=== PATIENT | female | born 1940 | race Caucasian/White ===

== ENCOUNTER 2016-09-21 06:42 | Inpatient (IN) ==
[~2016-09-21 06:42] MED LIST: ACETAMINOPHEN 500 MG TABLET PO ONE; CEFAZOLIN 1 G INJECTION IVP ONE; EPINEPHrine 0.25 MG, BUPIVACAINE 0.25% PF 30 ML, MORPHINE SULFATE 15 MG, KETOROLAC INJ ... OPSITE ONE; FAMOTIDINE PB 20 MG/50 ML BAG IV ONE; LIDOCAINE 1% (10mg/ml) 10mL MDV SQ ONE; MELOXICAM 15 MG TABLET PO ONE; METOCLOPRAMIDE 10mg/2ml INJECTION IVP ONE; NOZIN NASAL SWAB NAS ONE; ONDANSETRON 4 MG/2 ML INJECTION IVP ONE; SALINE FLUSH 10ml SYRINGE IVF PRN; TRANEXAMIC ACID 1,000 MG in NS 100 ML IV ONE
[2016-09-21 06:58] VITALS: BMI 28.6
[2016-09-21] MEDS ORDERED: VANCOMYCIN 1,000 MG INJECTION ONE (07:00)
[2016-09-21] MEDS ORDERED: LIDOCAINE 1% (10mg/ml) 2mL INJ PF SDV ID ONE (07:45)
--- NOTE | 2016-09-21 08:53 | History & Physical Update ---
- History and Physical Update Date: 09/21/16 Update: I evaluated this patient and found no changes in the history and clinical exam findings. The treatment plan and recommendations are also unchanged from the previous documentation.
[2016-09-21] MEDS ORDERED: PROPOFOL 500 MG/50 ML VIAL IV ONE (08:56)
[2016-09-21] MEDS ORDERED: HYDROMORPHONE 2 MG/ML INJECTION IVP PRN (09:43)
--- NOTE | 2016-09-21 09:43 | Anesthesia Preoperative Report ---
Anesthesia Preoperative Record - Date and Time Date: 09/21/16 Preoperative Diagnosis: Lt TKA M17.12 Proposed Procedure: left total knee arthroplasty NPO Since Date: 09/21/16 NPO Since Time: 05:00 Allergies/Adverse Reactions: Allergies Allergy/AdvReac Type Severity Reaction Status Date / Time No Known Drug Allergies Allergy Unknown Verified 09/21/16 07:06 - Vital Signs Vital Signs: Temperature 97.6 F 09/21/16 06:57 Pulse Rate 92 09/21/16 06:57 Respiratory Rate 15 09/21/16 06:57 Blood Pressure 147/73 H 09/21/16 06:57 Pulse Oximetry 96 09/21/16 06:57 Oxygen Delivery Method Room Air Height and Weight: Height 1.63 m Weight 75.8 kg Body Mass Index 28.6 - Medications Inpatient Medications: Current Medications Epinephrine HCl 0.25 mg/Bupivacaine HCl 30 ml/Morphine Sulfate 15 mg/Ketorolac Tromethamine 60 mg/Sodium Chloride 65.25 mls @ 1 mls/hr OPSITE INTRAOP ONE PRN Reason: Protocol Stop: 09/23/16 23:14 Lactated Ringer's (Lactated Ringers) 1,000 mls @ 50 mls/hr IV .Q20H DEDRICK Last Admin: 09/21/16 07:29 Dose: 50 mls/hr Sodium Chloride (Iv Flush) 10 - 80 ml IVF PRN PRN PRN Reason: [place] Home Medications: Home Medications Medication Instructions Recorded Confirmed Type Acetaminophen [Tylenol Arthritis] 2 tab PO PRN PRN #0 07/08/09 09/20/16 History Guanfacine HCl [Tenex] 1 mg PO DAILY #0 07/08/09 09/21/16 History Lisinopril 20 mg PO DAILY #0 tab 07/22/13 09/21/16 History Aspirin [ASA] 325 mg PO PRN PRN 09/12/16 09/20/16 History Meloxicam 7.5 mg PO BID 09/12/16 09/21/16 History Metformin HCl [Glucophage Xr] 1 tab PO DAILY 09/12/16 09/21/16 History MethIMAzole [Tapazole] 1 tab PO DAILY 09/12/16 09/21/16 History Multivitamin [Multivitamins] 1 cap PO DAILY 09/12/16 09/21/16 History [place]-3/Dha/Epa/Fish Oil [Fish Oil 1 each PO DAILY 09/12/16 09/20/16 History 500 mg Softgel] - Medical History Cardiovascular: Reports: Heart Murmur, Hypertension Renal/Endocrine: Reports: Diabetes Mellitus Type 2 - Surgical History HEENT Surgeries: Reports: Eye Surgery (ANDRE CATARACTS) Endocrine Surgery/Treatments: Reports: Other ("PREDIABETIC"; HYPERGLYCEMIA--on Metformin) GI Surgery/Treatments: Reports: Appendectomy, Colonoscopy (X3), Other ( HEMORRHOIDECTOMY X2) Musculoskeletal Surgery/Tx: Reports: Total Knee Replacement (RIGHT) Reproductive Surgery/Treatment: Reports: Hysterectomy, Oophorectomy (left), Tubal Ligation, Salpingectomy Anesthesia Reactions: None Hx Family Anesthesia Reaction: No History of Motion Sickness: No - Social History Smoking Status: Never smoker Hx Chewing Tobacco Use: No Second Hand Exposure: No Substance Use Type: does not use Alcohol Intake Frequency: does not drink - Pertinent Findings Laboratory: CBC and BMP 09/21/16 07:56 BMP 09/21/16 07:56 Sodium 143 Potassium 4.1 Chloride 110 H Carbon Dioxide 23 BUN 17.0 Creatinine 0.7 Glucose 130 H Calcium 8.9 EKG Rhythm: Normal Sinus Rhythm - Physical Exam Respiratory Exam: Present: lungs clear Cardiovascular Exam: Present: regular rate and rhythm, systolic murmur - Airway Assessment Mallampati Score: II TMD: 3 Fingerbreadths Neck Extension: good Teeth: chipped teeth/crowns Overall Assessment: no airway concerns - ASA ASA Score: 2 - Plan Regional/Trunk Block: Spinal Peripheral Nerve Block: Saphenous-Left - Discussion Discussion: Discussed risks/options/alternatives of anesthesia and questions answered. Patient consents. Nursing pain assessment noted. Attestation Statement: Prior to the delivery of any anesthetic medication, I examined the patient, developed the plan, obtained the patient's consent and discussed the risk and benefits of the procedure with the patient/guardian. - Additional Information Seen by Anesthesia: Yes
[2016-09-21] MEDS ORDERED: PROPOFOL 20 ML ONE (09:53)
[2016-09-21] MEDS ORDERED: VANCOMYCIN 1,000 MG INJECTION IAR ONE (09:58)
--- NOTE | 2016-09-21 10:10 | Operative Note ---
- Procedure Date of Admission: 09/21/16 Side: left Preoperative Diagnosis: knee primary DJD Postoperative Diagnosis: Same as preoperative diagnosis. Operation: total knee arthroplasty Surgeon: Carmen Nettles MD Solution Sales Senior Executive: Archie Alaniz Complications: None. Regional/Trunk Block: Spinal Estimated Blood Loss: See Anesthesia Record. Fluids: Please see Anesthesia Record. Description of Procedure: Mrs. Tijerina and left knee knee were identified and marked in the preoperative holding area. She was brought back to the operating suite and placed supine on the operating table. Spinal anesthetic was administered. The operative lower extremity was prepped and draped in a sterile fashion. Timeout was performed. She had a varus deformity which was fixed with no flexion contracture. An anterior midline incision followed by medial parapatellar arthrotomy was performed. The tourniquet was not used until cementing. Hemostasis was obtained with electrocautery. The patella was resurfaced to a size 29. A distal femoral osteotomy was then performed in 5 of valgus using intramedullary guide. The femur was sized at a 3 and rotation set using the epicondylar axis. Distal femoral cuts were performed with a 4-in-1 cutting block. A proximal tibial cut was then made perpendicular to its long axis using an extramedullary guide. At this point remaining meniscus and osteophytes were removed and joint cocktail was injected throughout soft tissue. Trial components were placed with a 9 mm spacer. This allowed for full extension and flexion and the patella tracked well. The leg was then exsanguinated and the tourniquet inflated to 250 mmHg. The tibia was then stamped at a size 3 at the proper rotation. The bone was then prepared for cementing and Josh Triathalon components were cemented into place and allowed to cure in extension. The tourniquet was then let down and hemostasis obtained with electrocautery. Betadine solution was used during the curing period for 3 minutes. 1 g of vancomycin powder was placed into the joint before the capsulotomy was repaired with #1 Vicryl. I then left my grants and contracts assistant close the subcutaneous tissue and skin with 2-0 Vicryl and Monocryl. Dermabond was used on the skin. The drapes were then removed and she was taken to recovery room under the care of anesthesia.
[2016-09-21] MEDS ORDERED: ROPIVACAINE 0.5% (5mg/ml) 30ml INJ ONE (10:20)
[2016-09-21] MEDS ORDERED: ONDANSETRON 4 MG/2 ML INJECTION IVP PRN (11:15)
[2016-09-21] MEDS ORDERED: DiphenhydrAMINE 25 MG CAPSULE PO PRN (11:15)
[2016-09-21] MEDS ORDERED: LORazepam 1 MG TABLET PO PRN (11:15)
[2016-09-21] MEDS ORDERED: INSULIN ASPART 100unit/ml INJECTION SQ PRN (11:15)
[2016-09-21] MEDS ORDERED: DiphenhydrAMINE 50 MG/ML INJECTION IVP PRN (11:15)
[2016-09-21] MEDS ORDERED: NOZIN NASAL SWAB NAS ONE (11:15)
[2016-09-21] MEDS: NS 1,000 ML IV SCH (11:23)
--- NOTE | 2016-09-21 11:41 | XRay Report ---
Indication: postoperative image PROCEDURE: XR knee LT 2V: Encounter: Initial Comparison: August 23, 2016 Findings: Postoperative changes of left total knee replacement are seen. There is expected postoperative subcutaneous gas. No evidence of hardware failure or acute fracture. No retained radiopaque surgical instruments or sponges. Overlying material causing artifact. Impression: New left total knee prosthesis without evidence of immediate complication. .
[2016-09-21] MEDS ORDERED: LR 1,000 ML IV SCH (11:57)
--- NOTE | 2016-09-21 12:51 | Anesthesia Postoperative Note ---
- Date and Time Date: 09/21/16 Time: 12:51 - Status Patient Participated in Evaluation: Patient Participated in Person Vital Signs: Temperature 95.5 F L 09/21/16 11:25 Pulse Rate 78 09/21/16 12:25 Respiratory Rate 16 09/21/16 11:25 Blood Pressure 136/68 09/21/16 12:25 Pulse Oximetry 96 09/21/16 12:25 Oxygen Delivery Method Room Air Respiratory Function: Airway Patent Cardiovascular Function: Regular Pulse EKG Rhythm: Normal Sinus Rhythm Mental Status: Alert and Oriented Pain Intensity: 3 Hydration: Taking PO Fluids, IV Infusing Complications During Recover: None Apparent - Follow-Up Instructions Instructions: Per Surgeon
[2016-09-21] MEDS: ACETAMINOPHEN 325 MG TABLET PO SCH ×3 (13:13→21:10)
[2016-09-21] MEDS: Oxycodone *IR* 5 MG TABLET PO PRN (13:17)
[2016-09-21] MEDS: NOZIN NASAL SWAB NAS SCH ×2 (14:47→21:11)
[2016-09-21] MEDS ORDERED: WARFARIN 5 MG TABLET PO ONE (15:00)
[2016-09-21] MEDS: CEFAZOLIN 2 G in NS 100 ML IV SCH (16:51)
[2016-09-21] MEDS: MELOXICAM 7.5 MG TABLET PO SCH (16:52)
[2016-09-21] MEDS ORDERED: ENOXAPARIN 40 MG/0.4 ML INJECTION SQ SCH (21:00)
[2016-09-21] MEDS: DOCUSATE SODIUM 100 MG CAPSULE PO SCH (21:10)
[2016-09-21] MEDS ORDERED: SENNOSIDES 8.6 MG TABLET PO SCH (22:00)
[2016-09-22] MEDS: NS 1,000 ML IV SCH ×2 (00:31→13:19)
[2016-09-22] MEDS: CEFAZOLIN 2 G in NS 100 ML IV SCH (00:31)
[2016-09-22] MEDS: NOZIN NASAL SWAB NAS SCH (05:44)
[2016-09-22] MEDS: METHIMAZOLE 10 MG TABLET PO SCH ×2 (07:38→11:51)
[2016-09-22] MEDS: MELOXICAM 7.5 MG TABLET PO SCH (07:38)
[2016-09-22] MEDS: LISINOPRIL 20 MG TABLET PO SCH ×2 (07:38→11:51)
[2016-09-22] MEDS: GUANFACINE 1 MG TABLET PO SCH ×2 (07:39→11:52)
[2016-09-22] MEDS: Oxycodone *IR* 5 MG TABLET PO PRN (07:39)
--- NOTE | 2016-09-22 07:47 | Pharmacy Consult ---
Pharmacy Consult-Warfarin - Laboratory Information 09/22/16 03:59 INR 1.17 COUMADIN CONSULT A 75 yo female admitted for a left total knee replacement. The patient was warfarin naive. The patient has enoxaparin 40 mg sq daily ordered to bridge until the INR is between 1.5-2.0. Date INR Dose 09/21 --- 5 mg 09/22 1.17 Plan 5 mg Today's INR is 1.17. I am ordering a dose of 5 mg warfarin. The pharmacy will continue to monitor & make adjustments accordingly. Thank you for the Protocol , Sachin Thurston, Pharmacist.
[2016-09-22] MEDS: DOCUSATE SODIUM 100 MG CAPSULE PO SCH (08:53)
[2016-09-22] MEDS: ACETAMINOPHEN 325 MG TABLET PO SCH ×2 (08:53→13:18)
[2016-09-22] MEDS ORDERED: POLYETHYL GLYCOL 3350 17gm PACKET PO SCH (09:00)
[2016-09-22] MEDS ORDERED: OMEGA-3 ACID ESTERS 1 GM CAPSULE PO SCH (09:00)
--- NOTE | 2016-09-22 09:27 | Orthopedic Progress Note ---
Date: Subjective/Severity of Illness: alert. overall doing well. moderate pain. has been up and plans to go home this PM Orthopedic Objective PO Vital signs: Temperature 98.7 F 09/22/16 07:44 Pulse Rate 110 H 09/22/16 07:44 Respiratory Rate 16 09/22/16 07:44 Blood Pressure 149/82 H 09/22/16 07:44 Pulse Oximetry 97 09/22/16 07:44 Oxygen Delivery Method Room Air Oxygen Flow Rate 2 Height and Weight: Height 1.63 m Weight 75.8 kg Body Mass Index 28.6 - Constitutional General Appearance: Present: no acute distress - Extremities Exam Extremities: Absent: calf tenderness - Labs Result Diagrams: 09/22/16 03:59 09/22/16 03:59 Abnormal lab results 09/22/16 09/22/16 Range/Units 03:59 03:59 RBC 3.74 L (4.00-5.20) M/MM3 Hgb 10.8 L (12-16) GM/DL Hct 33.5 L (36-46) % MPV 14.3 H (9.4-12.4) UM3 Chloride 112 H (98-107) MEQ/L BUN 20.0 H (7-17) MG/DL Glucose 152 H (65-110) MG/DL Calcium 7.9 L D (8.4-10.2) MG/DL H & H 09/22/16 Range/Units 03:59 Hgb 10.8 L (12-16) GM/DL Hct 33.5 L (36-46) % Coagulation 09/22/16 Range/Units 03:59 INR 1.17 (0.99-1.21) Orthopedic Assessment and Plan (1) Status post total knee replacement Status: Acute Qualifiers: Laterality: unspecified laterality Qualified Code(s): Z96.659 - Presence of unspecified artificial knee joint Assessment and Plan: Home today if continues present course (2) Tachycardia with heart rate 100-120 beats per minute Status: Acute Problem Details: observe (3) Postoperative anemia due to acute blood loss Status: Acute Problem Details: observe Hospital Course Summary Disclaimer: The visit summary below is not to be considered part of the above Progress Note.
[2016-09-22] MEDS ORDERED: SENNOSIDES 8.6 MG TABLET PO PRN (10:27)
[2016-09-22] MEDS ORDERED: WARFARIN 5 MG TABLET PO SCH (12:00)
[2016-09-22 12:08] VITALS: BP 130/69; PULSE 116; RESP 20; TEMP 97.1; O2SAT 98
--- NOTE | 2016-09-22 13:41 | Discharge Summary ---
Orthopedic Discharge Info Date of admission: 09/21/16 06:42 Primary care physician: Tremayne Mccarty MD Attending Physician: Dashawn Nettles MD Consults: 09/15/16 06:00 Consult to Anesthesiology [CONS] Routine Consulting Provider: MARLENA Ashton Reason For Exam: Preoperative Assessment 09/21/16 11:15 Case Management Consult [CONS] Routine Reason For Exam: Discharge Planning DME-Walker [CONS] Routine Height: 5 ft 4 in Weight: 167 lb 1.766 oz Comment: change dressing in 2 weeks Pharmacy Consult [CONS] Routine Pharmacy Consult: Coumadin/Warfarin Total Joint Outpatient Therapy [CONS] Routine Comment: change dressing in 2 weeks - Discharge Diagnosis (1) Status post total knee replacement Qualifiers: Laterality: unspecified laterality Qualified Code(s): Z96.659 - Presence of unspecified artificial knee joint Status: Acute (2) Tachycardia with heart rate 100-120 beats per minute Problem Details: observe Status: Acute (3) Postoperative anemia due to acute blood loss Problem Details: observe Status: Acute - Procedures Procedures: Procedures Lt Total knee replacement (03/29/09) - Laboratory Result Diagrams: 09/22/16 03:59 09/22/16 03:59 Laboratory: Abnormal lab results 09/22/16 09/22/16 Range/Units 03:59 03:59 RBC 3.74 L (4.00-5.20) M/MM3 Hgb 10.8 L (12-16) GM/DL Hct 33.5 L (36-46) % MPV 14.3 H (9.4-12.4) UM3 Chloride 112 H (98-107) MEQ/L BUN 20.0 H (7-17) MG/DL Glucose 152 H (65-110) MG/DL Calcium 7.9 L D (8.4-10.2) MG/DL H & H 09/22/16 Range/Units 03:59 Hgb 10.8 L (12-16) GM/DL Hct 33.5 L (36-46) % Coagulation 09/22/16 Range/Units 03:59 INR 1.17 (0.99-1.21) Orthopedic Discharge HPI - HPI Comments This patient was admitted for elective surgical tx of end stage degenerative joint disease that failed to respond to conservative treatment. Further details of this is found in the admission H&P. Orthopedic Hospital Course Comments: After appropriate preoperative clearance and signing of operative consent, the patient was given IV antibiotics, according to orthopedic protocol. The patient was taken to the operating room and underwent elective joint arthroplasty. Following surgery, antibiotics were discontinued less than 24 hours according to joint protocol. Appropriate anticoagulants were initiated and SCDs added for DVT prevention. The dressing was clean, dry, and intact. Pain control was obtained via multimodal approach. Bowel motivation addressed with scheduled and PRN medications. Early mobilization was initiated through PT services. Discharge arrangements made by a collaborative effort between the patient and Case Management. Follow-up is scheduled in 2-3 weeks. Discharge instructions given by orthopedic providers and nursing staff at discharge. Discharge condition was good. - Postoperative Anemia patient received IVF, labs monitored daily, no intervention required, HGB drop- acceptable Discharge Plan - Med Rec/Dispo Referrals/Follow Up: Dashawn Nettles MD [Physician] - 10/13/16 8:30 am [place] Instructions: [facility] Tho General Instructions, [facility] Ortho Postop Instructions Additional Instructions: [facility] WILL BE OUT TO SEE YOU BEGINNING ON SEPTEMBER 23. THEY WILL GIVE YOU DAILY LOVENOX INJECTIONS FOR 5 DAYS AND DRAW LAB WORK ON MONDAYS AND THURSDAYS BEGINNING SundaySEPTEMBER 25. [facility] WILL DO PHYSICAL THERAPY AND OCCUPATIONAL THERAPY AT YOUR HOME. THERAPY WILL BEGIN SEPTEMBER 25. PLEASE RISK MANAGEMENT INTERNSHIP YOUR LOVENOX MEDICATION AT [facility] PRIOR TO YOUR FIRST HOME HEALTH VISIT SO THAT THE NURSE WILL HAVE THE MEDICATION TO GIVE YOU THE INJECTION. Prescriptions: New Acetaminophen [Tylenol] 650 mg PO QID #100 tablet Enoxaparin Sodium [Lovenox] 40 mg SQ Q24H #5 syringe Oxycodone *Ir* [Roxicodone *Ir*] 5 - 15 mg PO Q3H PRN #60 tablet PRN Reason: Breakthrough Pain Continue Lisinopril 20 mg PO DAILY #0 tab Metformin HCl [Glucophage Xr] 1 tab PO DAILY [place]-3/Dha/Epa/Fish Oil [Fish Oil Dr 500 mg Softgel] 1 each PO DAILY MethIMAzole [Tapazole] 1 tab PO DAILY Multivitamin [Multivitamins] 1 cap PO DAILY Guanfacine HCl [Tenex] 1 mg PO DAILY #0 Meloxicam 7.5 mg PO BID Discontinued Acetaminophen [Tylenol Arthritis] 2 tab PO PRN PRN #0 PRN Reason: Pain Aspirin [ASA] 325 mg PO PRN PRN PRN Reason: Pain - Disposition [facility]
--- NOTE | 2016-09-22 13:50 | Discharge Instructions ---
Discharge Plan - Med Rec/Dispo Referrals/Follow Up: Dashawn Nettles MD [Physician] - 10/13/16 8:30 am [place] Instructions: [facility] [place]ructions, [facility] [place] Postop Instructions Additional Instructions: [facility] WILL BE OUT TO SEE YOU BEGINNING ON SEPTEMBER 23. THEY WILL GIVE YOU DAILY LOVENOX INJECTIONS FOR 5 DAYS AND DRAW LAB WORK ON MONDAYS AND THURSDAYS BEGINNING SundaySEPTEMBER 25. [facility] WILL DO PHYSICAL THERAPY AND OCCUPATIONAL THERAPY AT YOUR HOME. THERAPY WILL BEGIN SEPTEMBER 25. PLEASE SPRAY MAKER YOUR LOVENOX MEDICATION AT [facility] PRIOR TO YOUR FIRST HOME HEALTH VISIT SO THAT THE NURSE WILL HAVE THE MEDICATION TO GIVE YOU THE INJECTION. Prescriptions: New Acetaminophen [Tylenol] 650 mg PO QID #100 tablet Enoxaparin Sodium [Lovenox] 40 mg SQ Q24H #5 syringe Warfarin [Coumadin] 2 tab PO 1700 #60 tab Oxycodone *Ir* [Roxicodone *Ir*] 5 - 15 mg PO Q3H PRN #60 tablet PRN Reason: Breakthrough Pain Continue Lisinopril 20 mg PO DAILY #0 tab Metformin HCl [Glucophage Xr] 1 tab PO DAILY [place]-3/Dha/Epa/Fish Oil [Fish Oil Dr 500 mg Softgel] 1 each PO DAILY MethIMAzole [Tapazole] 1 tab PO DAILY Multivitamin [Multivitamins] 1 cap PO DAILY Guanfacine HCl [Tenex] 1 mg PO DAILY #0 Meloxicam 7.5 mg PO BID Discontinued Acetaminophen [Tylenol Arthritis] 2 tab PO PRN PRN #0 PRN Reason: Pain Aspirin [ASA] 325 mg PO PRN PRN PRN Reason: Pain - Disposition [facility]
--- NOTE | 2016-09-22 14:23 | Orthopedic Progress Note ---
Date: Subjective/Severity of Illness: alert. overall doing well. moderate pain. has been up and plans to go home this PM Sofia was seen again this PM. She is adequately ambulatory, pain is controlled , she denies chest pain or shortness of breath. Her telemetry was reviewed HR has been steady 100-111, sinus rhythm. Orthopedic Objective PO Vital signs: Temperature 97.1 F 09/22/16 12:06 Pulse Rate 116 H 09/22/16 12:06 Respiratory Rate 20 09/22/16 12:06 Blood Pressure 130/69 09/22/16 12:06 Pulse Oximetry 98 09/22/16 12:06 Oxygen Delivery Method Room Air Oxygen Flow Rate 2 Height and Weight: Height 5 ft 4 in Weight 167 lb 1.766 oz Body Mass Index 28.6 - Constitutional General Appearance: Present: no acute distress - Extremities Exam Extremities: Absent: calf tenderness - Labs Result Diagrams: 09/22/16 03:59 09/22/16 03:59 Abnormal lab results 09/22/16 09/22/16 Range/Units 03:59 03:59 RBC 3.74 L (4.00-5.20) M/MM3 Hgb 10.8 L (12-16) GM/DL Hct 33.5 L (36-46) % MPV 14.3 H (9.4-12.4) UM3 Chloride 112 H (98-107) MEQ/L BUN 20.0 H (7-17) MG/DL Glucose 152 H (65-110) MG/DL Calcium 7.9 L D (8.4-10.2) MG/DL H & H 09/22/16 Range/Units 03:59 Hgb 10.8 L (12-16) GM/DL Hct 33.5 L (36-46) % Coagulation 09/22/16 Range/Units 03:59 INR 1.17 (0.99-1.21) Orthopedic Assessment and Plan (1) Status post total knee replacement Status: Acute Qualifiers: Laterality: unspecified laterality Qualified Code(s): Z96.659 - Presence of unspecified artificial knee joint Assessment and Plan: Discharge to home with home health Coumadin and Lovenox f/u 3 weeks (2) Tachycardia with heart rate 100-120 beats per minute Status: Acute Problem Details: observe (3) Postoperative anemia due to acute blood loss Status: Acute Problem Details: observe Hospital Course Summary Disclaimer: The visit summary below is not to be considered part of the above Progress Note.
[2016-09-23] MEDS ORDERED: BISACODYL 10 MG SUPPOSITORY RECTALLY SCH (20:00)
== END 2016-09-22 15:08 | disposition home health service (06) | DRG 470 ==
LOC: SRG 06:42
PROVIDERS: ADMIT Orthopaedic Surgery; ATTEND Orthopaedic Surgery

== ENCOUNTER 2017-05-03 11:04 | Inpatient (IN) ==
[~2017-05-03 11:04] MED LIST changes: -ACETAMINOPHEN 500 MG TABLET PO ONE; +BUPIVACAINE 0.25%/EPI 1:200,000 30ml SDV ONE; -CEFAZOLIN 1 G INJECTION IVP ONE; -EPINEPHrine 0.25 MG, BUPIVACAINE 0.25% PF 30 ML, MORPHINE SULFATE 15 MG, KETOROLAC INJ ... OPSITE ONE; -FAMOTIDINE PB 20 MG/50 ML BAG IV ONE; +HEPARIN SUB-Q 5,000units/0.5ml INJECTION SQ SCH; +INDOCYANINE GREEN 25mg INJECTION ONE; -LIDOCAINE 1% (10mg/ml) 10mL MDV SQ ONE; -MELOXICAM 15 MG TABLET PO ONE; -METOCLOPRAMIDE 10mg/2ml INJECTION IVP ONE; -NOZIN NASAL SWAB NAS ONE; -ONDANSETRON 4 MG/2 ML INJECTION IVP ONE; -SALINE FLUSH 10ml SYRINGE IVF PRN; -TRANEXAMIC ACID 1,000 MG in NS 100 ML IV ONE
[2017-05-03 12:07] VITALS: BMI 26.2
[2017-05-03] MEDS: LR 1,000 ML IV SCH ×2 (12:15→15:00)
[2017-05-03] MEDS ORDERED: PROPOFOL 20 ML ONE (12:34)
[2017-05-03] MEDS ORDERED: ROCURONIUM 50 MG/5 ML INJECTION IVP ONE ×2 (12:34→15:02)
[2017-05-03] MEDS ORDERED: FentaNYL 250 MCG/5 ML INJECTION ONE ×3 (12:34→17:08)
--- NOTE | 2017-05-03 12:36 | Anesthesia Preoperative Report ---
Anesthesia Preoperative Record - Date and Time Date: 05/03/17 Preoperative Diagnosis: Robotic Transverse Colectomy C18.0 NPO Since Date: 05/02/17 NPO Since Time: 00:00 Allergies/Adverse Reactions: Allergies Allergy/AdvReac Type Severity Reaction Status Date / Time No Known Drug Allergies Allergy Unknown Verified 05/01/17 13:08 - Vital Signs Vital Signs: Temperature 98.3 F 05/03/17 12:06 Pulse Rate 90 05/03/17 12:17 Respiratory Rate 16 05/03/17 12:06 Blood Pressure 149/90 H 05/03/17 12:06 Pulse Oximetry 98 05/03/17 12:06 Height and Weight: Height 1.63 m Weight 69.3 kg Body Mass Index 26.2 - Medications Inpatient Medications: Current Medications Heparin Sodium (Porcine) (Heparin Sq) 5,000 units SQ [facility] Last Admin: 05/03/17 12:07 Dose: 5,000 units Ertapenem 1 g/ Sodium Chloride 100 mls @ 200 mls/hr IV PREOP ONE Stop: 05/03/17 15:25 Lactated Ringer's (Lactated Ringers) 1,000 mls @ 50 mls/hr IV .Q20H [facility] Last Admin: 05/03/17 12:15 Dose: 50 mls/hr Lidocaine HCl (Xylocaine-Mpf 1% Vial) 1 mg ID O ONE Stop: 05/03/17 14:54 Last Admin: 05/03/17 12:17 Dose: Not Given Home Medications: Home Medications Medication Instructions Recorded Confirmed Type Multivitamin [Multivitamins] 1 cap PO DAILY 09/12/16 05/03/17 History Tylenol Arthritis 650 mg 650 mg PO Q8H PRN 03/19/17 05/03/17 History tablet,extended release aspirin 81 mg chewable tablet 81 mg PO DAILY 03/19/17 05/03/17 History omega 3-dha 60 mg-epa 90 mg-fish 1 cap PO DAILY cap 03/19/17 05/03/17 History oil 500 mg capsule, delayed release guanfacine 1 mg tablet 1 mg PO HS 03/21/17 05/03/17 History methimazole 10 mg tablet 10 mg PO DAILY 03/21/17 05/03/17 History vit A 7,160 unit-vit C 113 mg-vit 2 tab PO BID 03/21/17 05/03/17 History E 100 mmla-kzrm-xkvuml-lutein tablet Lisinopril [Zestril] 20 mg PO DAILY 04/11/17 05/03/17 History Is Patient on Beta Arnie?: No - Medical History Respiratory: DENIES: Sleep Apnea Cardiovascular: Reports: Heart Murmur, Hypertension Gastrointestional: Reports: Other (COLON TUMOR) Neuro/Musculoskeletal: Reports: 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, HANDS, FEET AND KNEES) Renal/Endocrine: Reports: Diabetes Mellitus Type 2 (PREDIABETIC), Thyroid Disease (CHRONIC HYPERTHYROIDISM) Other History: Reports: Anesthesia Reactions (BAD HEADACHES), Cancer (OVARIAN, COLON) - Surgical History HEENT Surgeries: Reports: Eye Surgery (ANDRE CATARACTS) Endocrine Surgery/Treatments: Reports: Other ("PREDIABETIC"; HYPERGLYCEMIA--on Metformin) GI Surgery/Treatments: Reports: Appendectomy, Colonoscopy (X3), Other ( HEMORRHOIDECTOMY X2) Musculoskeletal Surgery/Tx: Reports: Total Knee Replacement (BILATERAL) Reproductive Surgery/Treatment: Reports: Hysterectomy, Oophorectomy, Tubal Ligation, Salpingectomy Hx Family Anesthesia Reaction: No History of Motion Sickness: No - Social History Smoking Status: Never smoker Hx Chewing Tobacco Use: No Second Hand Exposure: No Substance Use Type: does not use Alcohol Intake Frequency: does not drink - Pertinent Findings EKG: Sinus Rhythm - Physical Exam Respiratory Exam: Present: lungs clear, bilateral breath sounds equal Cardiovascular Exam: Present: regular rate and rhythm - Airway Assessment Mallampati Score: II TMD: 3 Fingerbreadths Neck Extension: fair Overall Assessment: no airway concerns - ASA ASA Score: 2 - Plan Anesthesia: General Inhalation Gases - Discussion Discussion: Discussed risks/options/alternatives of anesthesia and questions answered. Patient consents. Nursing pain assessment noted. Attestation Statement: Prior to the delivery of any anesthetic medication, I examined the patient, developed the plan, obtained the patient's consent and discussed the risk and benefits of the procedure with the patient/guardian. - Additional Information Seen by Anesthesia: Yes
[2017-05-03] MEDS ORDERED: LACRI-LUBE EYE OINT 3.5gm ONE (13:23)
[2017-05-03] MEDS ORDERED: ONDANSETRON 4 MG/2 ML INJECTION ONE (13:32)
[2017-05-03] MEDS ORDERED: DEXAMETHASONE 4 MG/ML INJECTION ONE (13:32)
[2017-05-03] MEDS ORDERED: INDOCYANINE GREEN 25mg INJECTION IVP ONE (14:27)
[2017-05-03] MEDS ORDERED: BUPIVACAINE 0.25%/EPI 1:200,000 30ml SDV INFIL ONE (14:27)
[2017-05-03] MEDS ORDERED: LIDOCAINE 1% (10mg/ml) 2mL INJ PF SDV ID ONE (14:53)
[2017-05-03] MEDS ORDERED: ERTAPENEM 1 G in NS 100 ML IV ONE (14:56)
[2017-05-03] MEDS ORDERED: ONDANSETRON 4 MG/2 ML INJECTION IVP PRN ×2 (16:43→18:29)
[2017-05-03] MEDS ORDERED: FentaNYL 100 MCG/2 ML INJECTION IVP PRN (16:43)
[2017-05-03] MEDS ORDERED: SUGAMMADEX 200mg/2ml INJECTION IVP ONE (17:15)
[2017-05-03] MEDS ORDERED: DESFLURANE 240ml LIQUID IH ONE (17:33)
--- NOTE | 2017-05-03 17:59 | General Surgery Procedure Note ---
Date of Procedure: 05/03/17 Surgeon: Sharon Cast Iron Dipper: Richmond Tam APRN Postoperative Diagnosis: Ascending colon cancer Procedure: Robotic assisted laparoscopic extended right hemicolectomy Estimated Blood Loss: See Anesthesia Record.
--- NOTE | 2017-05-03 18:20 | Anesthesia Postoperative Note ---
- Date and Time Date: 05/03/17 Time: 18:17 - Status Patient Participated in Evaluation: Patient Participated in Person Vital Signs: Temperature 98.0 F 05/03/17 18:15 Pulse Rate 113 H 05/03/17 18:15 Respiratory Rate 18 05/03/17 18:15 Blood Pressure 167/75 H 05/03/17 18:15 Pulse Oximetry 94 05/03/17 18:15 Respiratory Function: Airway Patent, Regular Respirations Cardiovascular Function: Regular Pulse Mental Status: Alert and Oriented Pain Intensity: 2 Hydration: IV Infusing Complications During Recover: None Apparent - Follow-Up Instructions Instructions: Per Surgeon
[2017-05-03] MEDS ORDERED: 1/2 NS 1,000 ML IV SCH (18:29)
[2017-05-03] MEDS ORDERED: METOCLOPRAMIDE 10mg/2ml INJECTION IVP PRN (18:29)
[2017-05-03] MEDS ORDERED: MORPHINE PCA 30 MG/30 ML SYRINGE IV PRN (18:29)
[2017-05-03] MEDS: KETOROLAC 15 MG/ML INJECTION IVP PRN (18:35)
[2017-05-03] MEDS: D5-1/2NS with KCL 20mEq 1,000 ML IV SCH (23:15)
[2017-05-04] MEDS: KETOROLAC 15 MG/ML INJECTION IVP PRN ×3 (05:19→19:34)
[2017-05-04] MEDS: D5-1/2NS with KCL 20mEq 1,000 ML IV SCH ×3 (07:39→16:02)
[2017-05-04] MEDS ORDERED: MORPHINE SULFATE 4mg INJECTION IVP PRN (08:02)
--- NOTE | 2017-05-04 08:08 | General Surgery Progress Note ---
Subjective Narrative: Awake and alert this morning, she has had only Toradol for pain during the night. Nurse reported Sofia refused the INSURANCE BILLING SPECIALIST option. Sofia states she has some discomfort, but not much "real pain." Denies nausea. Urine output has been 75- 155 ml/hr. She is able to roll over in bed without difficulty. Denies chest pain , SOA. She would like some juice. - Vital Signs Last Vital Signs Temp 97.6 F 05/03/17 20:00 Pulse 93 05/04/17 05:30 Resp 19 05/04/17 05:30 BP 157/74 H 05/04/17 05:30 Pulse Ox 95 05/04/17 05:30 - Laboratory Result Diagrams: 05/04/17 05:12 05/04/17 05:12 Laboratory Tests 05/04/17 05:52 TSH 0.29 L - Normal Exam General: awake, alert, oriented, no acute distress Cardiovascular: regular rhythm, regular rate Respiratory: clear bilaterally, no labored breathing Abdominal: soft, appropriately tender, incision(s) (Dressings in tact, tori present) Psychiatric: normal affect Neurological: CN 2-12 grossly intact Assessment and Plan (1) Colon cancer, ascending Current Visit: Yes Status: Acute (2) Hyperthyroidism Current Visit: No Status: Chronic Problem details: Clinically euthyroid; confirm chemically. (3) Osteoarthritis Current Visit: No Status: Chronic Qualifiers: Osteoarthritis location: unspecified site Osteoarthritis type: unspecified Qualified Code(s): M19.90 - Unspecified osteoarthritis, unspecified site Plan: Doing very well for early POD#1 Post extended right hemicolectomy for colon cancer. Great urine output 75-155/hr, will DC Sarabia. VSS sodium elevated on pre-op lab 05/02, normal this morning. Pain controlled with only Toradol, INSURANCE BILLING SPECIALIST was refused and no additional pain med needed. Good bowel sounds, will advance to clear liquid diet. Obtain TSH with reflex T-4 to check hyperthyroidism, on Tapazole Hyperglycemia, non-diabetic, will get an A1c, likely stress response. Discussed with Dr. Herrera, will transfer to surgical floor. 1500 ADDENDUM: TSH low, she is on Tapazole for Hyperthyroidism. Talked with Dr. Mccarty, will continue same dose and ask for a Richmond Rios consult either next week or after discharge. She had small stool, some blood, diet advanced to full liquids. Hospital Course Summary Disclaimer: The visit summary below is not to be considered part of the above Progress Note. Hospital Course: 05/03/2017 Robotic assisted Extended right hemicolectomy. Transferred to CCU post op. 05/04/17 POD #1 Doing very well for early POD#1 Post extended right hemicolectomy for colon cancer. Great urine output 75-155/hr, will DC Sarabia. VSS sodium elevated on pre-op lab 05/02, normal this morning. Pain controlled with only Toradol, INSURANCE BILLING SPECIALIST was refused and no additional pain med needed. Good bowel sounds, will advance to clear liquid diet. Obtain TSH with reflex T-4 to check hyperthyroidism, on Tapazole Hyperglycemia, non-diabetic, will get an A1c, likely stress response. Discussed with Dr. Herrera, will transfer to surgical floor. 1500 ADDENDUM: TSH low, she is on Tapazole for Hyperthyroidism. Talked with Dr. Mccarty, will continue same dose and ask for a Richmond Rios consult either next week or after discharge. She had small stool, some blood, diet advanced to full liquids.
[2017-05-04] MEDS: LISINOPRIL 20 MG TABLET PO SCH (09:10)
[2017-05-04] MEDS: ENOXAPARIN 40 MG/0.4 ML INJECTION SQ SCH (09:10)
[2017-05-04] MEDS: METHIMAZOLE 10 MG TABLET PO SCH (09:15)
--- NOTE | 2017-05-04 10:26 | Operative Note ---
DATE OF PROCEDURE 05/03/2017 SURGEON Pb Herrera MD NIGHT TIME NANNY Richmond Tam APRN PREOPERATIVE DIAGNOSIS Invasive adenocarcinoma involving hepatic flexure. POSTOPERATIVE DIAGNOSIS Invasive adenocarcinoma involving hepatic flexure. PROCEDURE Robotic-assisted laparoscopic extended right hemicolectomy. ANESTHESIA General endotracheal. BRIEF HISTORY/INDICATIONS Ms. Tijerina is a 76-year-old female who recently underwent a colonoscopy. Unfortunately, she was found have a near-obstructing lesion at 70 cm from the anal verge. The colonoscope was unable to be advanced past this location. The patient subsequently underwent further evaluation including a Gastrografin enema and CT scan of the chest, abdomen and pelvis. There was no evidence for metastatic disease. The patient was found to have a mass near the hepatic flexure region, just proximal to hepatic flexure region. This was also demonstrated upon Gastrografin enema. There were no additional synchronous lesions. It was recommended to the patient she undergo a robotic-assisted laparoscopic extended right hemicolectomy. The patient presented today to undergo this procedure. FINDINGS Upon laparoscopy the liver edge was smooth without nodularities. The gallbladder was normal in its appearance. Omentum, small bowel, colon, peritoneal surfaces which were visualized were within normal limits. One could visibly see the mass just proximal to the hepatic flexure. The colon was also tattooed endoscopically at this location. An extended right hemicolectomy was able to be completed without incident. DESCRIPTION OF PROCEDURE After informed consent was obtained, the patient was brought to the operative suite and placed on the table in a supine fashion. The abdomen was prepped and draped in a sterile fashion. Formal time-out was then completed. 0.25% Marcaine with epinephrine was injected just beneath the left subcostal margin. A 4-5 mm incision was made through the area of analgesia. A Veress needle was then introduced through this incision and into the peritoneal cavity. Pneumoperitoneum was established to a patient pressure of 15 mmHg utilizing carbon dioxide. Next, a 12-mm camera port was then placed lateral to the umbilicus and slightly in a caudad fashion. Next, a laparoscope inserted through the camera port. One could see the Veress needle coursing through the anterior abdominal wall. The Veress needle was removed. A da Emily stapler port was then placed within the left upper quadrant of the abdomen and out laterally. Two additional 8-mm da Emily ports were then placed within the epigastric region as well as in the suprapubic region. An 8 mm AirSeal assist port was then placed in the left lower quadrant. Each port site was preinjected with 0.25% Marcaine with epinephrine and placed under direct visualization. The abdominal cavity was explored via the laparoscope. Findings were as noted above. The patient was then placed in Trendelenburg position and slightly rotated towards her left. Small bowel was then gently swept utilizing a laparoscopic grasper into the left upper quadrant. Omentum was grasped and brought forth up above the transverse colon. One could then see the right mesocolon quite well. Robot was then docked overlying the patient 's right shoulder at a 45-degree angle. A Graptor was placed in robotic arm #3 to be utilized as a retractor. Fenestrated bipolar grasper was placed in robotic arm #2. Hook cautery was placed in robotic arm #1. There AirSeal port was utilized by my assistant corporation counsel, Richmond Tam, during the course of the procedure. First the Graptor was utilized and the cecal region was grasped and retracted in an anterior and caudad fashion as to provide tension upon the right ileocolic vessels. One could see tenting of the right mesocolon overlying the ileocolic vessels. Dissection was then begun cephalad and caudad to the ileocolic vessels at its origin near the aorta. The right colic artery and vein were dissected out circumferentially just beyond the aorta. A Hem-o- marco clip was then placed upon the right colic artery near its origin. Additional Hem-o-marco clip was then placed distally. Artery was then divided between the two Hem-o-marco clips utilizing scissors. Additional Hem-o-marco clip was then placed upon the remaining right colic vein proximally. Right colic vein was then divided distal to the Hem-o-marco clip utilizing a laparoscopic vessel sealer. The retroperitoneal plane was then continued to be dissected out just beneath the right mesocolon towards the terminal ileum. Right mesocolon was then divided under direct visualization with the vessel sealer up to the terminal ileum. One could see the ureter within the retroperitoneum. The ureter was preserved in its entirety. Next, attention was then focused more towards the right mid ascending colon. A grasper was placed beneath the ascending colon and the ascending colon was retracted anteriorly and the loose areolar tissue beneath the colon was dissected posteriorly along the posterior aspect of the ascending colon up towards the hepatic flexure region. Next, attention was then focused towards the transverse colon. The greater omentum was then dissected off the transverse colon at its midportion back towards the hepatic flexure. Omentum was then divided at this location. The omentum which had been dissected off of the transverse colon proximally was placed within the left upper quadrant. Next, the gastrocolic ligament was then divided from the mid transverse colon back towards the hepatic flexure. The hepatic flexure was then taken down. There was a portion of the hepatic flexure that was adherent to the gallbladder. Hepatic flexure at this location was taken down away from the gallbladder and the hepatic flexure was reflected caudally and medially. The duodenum was identified as the hepatic flexure was being taking down in this fashion. Duodenum was dissected posteriorly. The hepatic flexure was then completely taken down so that it had now been completely mobilized. Next, the terminal ileum was divided about 6-8 cm proximal to the ileocecal valve utilizing the robotic stapler. Next, attention was focused back towards the transverse colon. A small opening was then created within the mid transverse colon just to the right of the middle colic vessel. The transverse mesocolon was then divided down towards its origin. Transverse colon was then divided just to the right of the middle colic vessel. Next, attention was focused back to the cecal region. The white line of Toldt was incised and the cecum was taken down and the remaining white line of Toldt along the right pericolic gutter was then divided under direct visualization. At this time there was a small portion of the remaining mesentery still attached to the hepatic flexure. One could clearly see the duodenum that had been dissected out and was now clearly visible and remained to be intact. The remaining mesentery to the hepatic flexure was then divided near its origin. At this time the transverse colon and terminal ileum had been divided. The mesentery to the terminal ileum , transverse colon and proximal transverse colon had been completely divided near its origin. The specimen was then placed up by the liver. Attention was then directed towards performing a isoperistaltic anastomosis. Terminal ileum was brought forth in an isoperistaltic fashion and laid adjacent to the transverse colon. The terminal ileum was allowed to "overlap" the transverse colon by perhaps 8-10 cm. A 3-0 Vicryl stay suture was then placed along the antimesenteric borders of the terminal ileum and transverse colon in the isoperistaltic fashion as discussed above. Next, my assistant corporation counsel grasped the stay suture within the right upper quadrant that was placed near the staple line. The patient was then given intravenous ICG and the vascular supply to the terminal ileum and remaining transverse colon was assessed. The terminal ileum did fluoresce quite well all the way up to the staple line. Staple line upon the terminal ileum fluoresced quite well. Attention was then focused to the transverse colon. Transverse colon also fluoresced quite well up to the staple line. There was no evidence for vascular compromise. Next, attention was directed towards completion of the isoperistaltic anastomosis. Enterotomy and colotomy was then performed adjacent to the second stay suture that had been placed along the antimesenteric border of the staple line upon the terminal ileum and the antimesenteric portion of the transverse colon. The robotic stapler was then placed within the enterotomy and colotomy and aligned along the antimesenteric borders and fired. The stay suture placed near this enterotomy and colotomy was then removed so that the anastomosis could be clearly inspected. Both staple lines were able to be visualized through the enterotomy and colotomy and were intact without evidence for bleeding. Attention was then directed towards closure of the common enterotomy and colotomy. The enterotomy/colotomy was closed in two layers. Utilizing a 2-0 V- Loc suture the mucosal edges of the enterotomy and colotomy were initially imbricated to one another in a running fashion. A second row of Lembert sutures was also performed utilizing the same 2-0 V-Loc suture overlying the original suture line. This portion of the procedure was performed quite carefully and meticulously. Following closure of the enterotomy and colotomy, attention was focused back towards the prior area of dissection. There was no evidence for bleeding. Instrument, sponge and needle count was performed and found to be correct. Attention was then directed towards removal of the specimen. Robot was undocked. The trocar within the suprapubic region was then removed. A 4-5 cm incision was then made adjacent to this port site in a transverse fashion. Dissection was carried down the deep subcuticular tissues to the underlying anterior rectus sheath. A standard Pfannenstiel incision was made. Anterior rectus sheath was divided with cautery. An [facility] clamp was then placed upon the anterior rectus sheath and retracted anteriorly and dissection was carried out beneath the anterior rectus sheath in a cephalad and caudad fashion. Underlying peritoneum was then opened between the rectus muscles longitudinally. An Otoniel wound retractor was then placed through this small fascial opening. Pneumoperitoneum was then reestablished. The "lid portion" of the Otoniel wound retractor was replaced and a small trocar was placed through the opening within the Otoniel wound retractor. Terminal ileum was then grasped upon the surgical specimen and brought forth up through the Otoniel wound retractor. Specimen was then removed. Lid portion of the Otoniel retractor was then replaced and attention was then focused to the small portion of omentum that had been dissected off the transverse colon. This additional portion of omentum was removed. There was a small vessel that still was entering into the remaining portion of the omentum that had been dissected off the transverse colon. A Horizon hemoclip was utilized to ligate this small remaining vessel proximally and the vessel was divided distally. This portion of omentum was then removed through the Otoniel wound retractor. Lid portion of the Otoniel wound retractor was then replaced and pneumoperitoneum was again established. Irrigation was performed and all irrigant was suctioned till clear. The previously placed Hem-o-Marco clips upon the right colic artery and vein remained to be intact. No evidence for bleeding. Right ureter was identified and remained to be preserved in its entirety. The duodenum was also inspected and found to be preserved in its entirety as well. Attention was then directed towards closure. Pneumoperitoneum was removed. Otoniel wound retractor was removed. The fascia at the Pfannenstiel incision was closed in two layers utilizing O PDS suture. The fascia at the larger port sites were closed with 0 Vicryl in a [id number] fashion. Deep subcutaneous tissues at the Pfannenstiel incision were closed in a running fashion with 3-0 Vicryl. All skin incisions were then closed with tori. The patient was awakened from her anesthetic and sent back to the ICU once deemed in stable condition. Additionally, it should be noted that Richmond Tam APRN, was present throughout the entire case and played a pivotal role in providing assistance and exposure during the course of the procedure. SADIE
--- NOTE | 2017-05-04 15:12 | Progress Note ---
DATE 05/04/2017 FINDINGS Mrs. Tijerina was without complaints today. She has had surprisingly very little incisional discomfort following surgery. She did have a small maroon stool earlier today per nursing report. She subsequently then had a small stool that was nonbloody in nature. OBJECTIVE VITALS: Afebrile. Normotensive. Please refer to EMR. CHEST: Clear to auscultation bilaterally. HEART: Regular rate and rhythm. Normal S1 and S2 without gallops, murmurs, or clicks. ABDOMEN: Soft. Minimal incisional tenderness present. No evidence for guarding or rebound. LABORATORY/RADIOGRAPHIC EVALUATION CBC was obtained today and was unremarkable. Hemoglobin was 10.2. The patient was anemic preoperatively and overall her hemoglobin is stable. ASSESSMENT 76-year-old female status post robotic assisted laparoscopic right hemicolectomy. Patient doing well. PLAN I am little concerned with this small amount of rectal bleeding but blood was likely a result of some bleeding from the staple line at her anastomosis. It does not appear that this was a significant amount nor has it continued. Will go and transfer the patient out to the floor. Will continue otherwise with current care. Will place on full liquids. Will continue to monitor her closely. Overall I am quite pleased with the patient's appearance on postop day #1. SADIE
[2017-05-05] MEDS: METHIMAZOLE 10 MG TABLET PO SCH (08:27)
[2017-05-05] MEDS: LISINOPRIL 20 MG TABLET PO SCH (08:27)
[2017-05-05] MEDS: ENOXAPARIN 40 MG/0.4 ML INJECTION SQ SCH (08:28)
[2017-05-05] MEDS: D5-1/2NS with KCL 20mEq 1,000 ML IV SCH ×2 (09:14)
--- NOTE | 2017-05-05 10:27 | Progress Note ---
DATE OF SERVICE 05/05/2017 FINDINGS Mrs. Tijerina was without complaints today. She states that she did have a few loose stools this morning but this has now subsided. Her stools were nonbloody in nature. EXAM VITAL SIGNS: Afebrile, normotensive. ABDOMEN: Soft. Minimal incisional tenderness present. LABORATORY/RADIOGRAPHIC EVALUATION The patient has CBC and BMP obtained today that were without marked abnormalities. Hemoglobin has drifted down slightly to 9.1. ASSESSMENT 76-year-old female status post robotic-assisted laparoscopic right hemicolectomy. Patient doing well. PLAN Will go ahead and heplock IV fluids. Begin regular diet. The patient may be able to be discharged tomorrow pending her progress. I am pleased with the patient's progress at this time. SADIE
[2017-05-06] MEDS: HYDROCODONE/APAP 5mg/325mg TABLET PO PRN (04:17)
[2017-05-06 07:57] VITALS: RESP 16
[2017-05-06] MEDS: LISINOPRIL 20 MG TABLET PO SCH (08:22)
[2017-05-06] MEDS: ENOXAPARIN 40 MG/0.4 ML INJECTION SQ SCH (08:22)
[2017-05-07] MEDS: HYDROCODONE/APAP 5mg/325mg TABLET PO PRN (01:58)
--- NOTE | 2017-05-07 07:55 | Progress Note ---
DATE: 05/06/2017 FINDINGS Mrs. Tijerina states that overall she is feeling well. She did inform me that she had few bloody stools this morning. The patient states that she "passed nothing but blood" earlier this morning. She has had no further bleeding. The patient states she did have four loose stools this morning, two of which were bloody. She denies any element of abdominal pain. VITALS: Afebrile. Normotensive. ABDOMEN: Soft, nontender. Incision is clean, dry and intact. LABORATORY/RADIOGRAPH EVALUATION Although the patient stated that she was having some bleeding, her hemoglobin overall is stable at 9.0. White count is stable at 10.3. BMP obtained and found to be without marked abnormalities. ASSESSMENT A 76-year-old female status post robotic-assisted extended right hemicolectomy. Patient doing well with the exception of some episodes of rectal bleeding. PLAN It was my plan that we were going to go ahead and discharge the patient today given her ongoing clinical improvement. In light of these bloody stools and her age, I am little reluctant to discharge the patient this afternoon. Will continue to follow closely over the next 24 hours and if she does not have any further rectal bleeding will discharge the patient tomorrow. Overall pleased with the patient's progress. I believe the bleeding likely is the result of her prior anastomosis and will hopefully be a self-limiting process. SADIE
[2017-05-07 08:43] VITALS: TEMP 97.8
[2017-05-07] MEDS: ENOXAPARIN 40 MG/0.4 ML INJECTION SQ SCH (08:59)
[2017-05-07] MEDS: LISINOPRIL 20 MG TABLET PO SCH (09:00)
--- NOTE | 2017-05-07 10:00 | General Surgery Progress Note ---
Subjective Patient reports: feels better, tolerating a regular diet, voiding w/o difficulty , bowel movement, blood in stool Narrative: She had visitors last night and got tired after the long visit, other than that , she is feeling good, having BM's, although bloody. No nausea, appetite is ok, and getting better. Denies chest pain, SOA. Voiding without difficulty. - Vital Signs Last Vital Signs Temp 97.8 F 05/07/17 08:41 Pulse 96 05/07/17 08:41 Resp 16 05/07/17 08:41 BP 139/77 05/07/17 08:41 Pulse Ox 97 05/07/17 08:41 - Laboratory Result Diagrams: 05/07/17 04:08 05/07/17 04:08 - Pathology pending at time of visit - Normal Exam General: awake, alert, oriented, no acute distress Respiratory: clear bilaterally, no labored breathing Abdominal: BS normo active x4, soft, appropriately tender, incision(s) (CDI, tori present, ecchymosis at the trocar sites) Psychiatric: normal affect Assessment and Plan (1) Colon cancer, ascending Current Visit: Yes Status: Acute (2) Hyperthyroidism Current Visit: No Status: Chronic Problem details: Clinically euthyroid; confirm chemically. (3) Osteoarthritis Current Visit: No Status: Chronic Qualifiers: Osteoarthritis location: unspecified site Osteoarthritis type: unspecified Qualified Code(s): M19.90 - Unspecified osteoarthritis, unspecified site (4) Elevated hemoglobin A1c Current Visit: Yes Status: Chronic Plan: POD #4 Eating regular diet, BM's, although bloody, Plan on DC to home later today. Obtain a consult with Dr. Rios for hyperthyroidism and elevated Hgb A1c, patient is in agreement. Follow up with Chung in 10-14 days. Oncology appointment will be arranged. Hospital Course Summary Disclaimer: The visit summary below is not to be considered part of the above Progress Note. Hospital Course: 05/03/2017 Robotic assisted Extended right hemicolectomy. Transferred to CCU post op. 05/04/17 POD #1 Doing very well for early POD#1 Post extended right hemicolectomy for colon cancer. Great urine output 75-155/hr, will DC Sarabia. VSS sodium elevated on pre-op lab 05/02, normal this morning. Pain controlled with only Toradol, ACOUSTICAL TILE PATTERNMAKER was refused and no additional pain med needed. Good bowel sounds, will advance to clear liquid diet. Obtain TSH with reflex T-4 to check hyperthyroidism, on Tapazole Hyperglycemia, non-diabetic, will get an A1c, likely stress response. Discussed with Dr. Herrera, will transfer to surgical floor. 1500 ADDENDUM: TSH low, she is on Tapazole for Hyperthyroidism. Talked with Dr. Mccarty, will continue same dose and ask for a Richmond Rios consult either next week or after discharge. She had small stool, some blood, diet advanced to full liquids. 3 POD #3 I am little reluctant to discharge the patient this afternoon. Will continue to follow closely over the next 24 hours and if she does not have any further rectal bleeding will discharge the patient tomorrow. Overall pleased with the patient's progress. I believe the bleeding likely is the result of her prior anastomosis and will hopefully be a self-limiting process. 3 POD #4 Eating regular diet, BM's, although bloody, Plan on DC to home later today. Obtain a consult with Dr. Rios for hyperthyroidism and elevated Hgb A1c, patient is in agreement. Follow up with Chung in 10-14 days. Oncology appointment will be arranged.
[2017-05-07 11:57] VITALS: BP 141/71; PULSE 97; O2SAT 99
--- NOTE | 2017-05-07 18:52 | Discharge Summary ---
Discharge Information Date of admission: 05/03/17 11:04 Anticipated date of discharge: 05/07/17 Attending Physician: Pb Herrera MD Primary care physician: Tremayne Mccarty MD Consults: 05/03/17 11:28 Consult to Anesthesiology [CONS] Routine Reason For Exam: COLON RESECTION - Discharge Diagnosis (1) Colon cancer, ascending Status: Acute (2) Hyperthyroidism Status: Chronic (3) Osteoarthritis Status: Chronic (4) Elevated hemoglobin A1c Status: Chronic - Procedures Procedures: DATE OF PROCEDURE 05/03/2017 SURGEON Pb Herrera MD [employer]LLOWS FILLER Richmond Tam APRN PREOPERATIVE DIAGNOSIS Invasive adenocarcinoma involving hepatic flexure. POSTOPERATIVE DIAGNOSIS Invasive adenocarcinoma involving hepatic flexure. PROCEDURE Robotic-assisted laparoscopic extended right hemicolectomy. - Laboratory Labs: 05/07/17 04:08 05/07/17 04:08 - Pathology Colon adenocarcinoma with 1:28 nodes positive for mets. - History of Present Illness Chief complaint: colon cancer HPI: BRIEF HISTORY/INDICATIONS Ms. Tijerina is a 76-year-old female who recently underwent a colonoscopy. Unfortunately, she was found have a near-obstructing lesion at 70 cm from the anal verge. The colonoscope was unable to be advanced past this location. The patient subsequently underwent further evaluation including a Gastrografin enema and CT scan of the chest, abdomen and pelvis. There was no evidence for metastatic disease. The patient was found to have a mass near the hepatic flexure region, just proximal to hepatic flexure region. This was also demonstrated upon Gastrografin enema. There were no additional synchronous lesions. It was recommended to the patient she undergo a robotic-assisted laparoscopic extended right hemicolectomy. Hospital Course This is a general summary of the patient's hospital course. For more details refer to the complete medical record. Hospital course: 05/03/2017 Robotic assisted Extended right hemicolectomy. Transferred to CCU post op. 05/04/17 POD #1 Doing very well for early POD#1 Post extended right hemicolectomy for colon cancer. Great urine output 75-155/hr, will DC [place]. VSS sodium elevated on pre-op lab 05/02, normal this morning. Pain controlled with only Toradol, INPATIENT CARE MANAGER RN was refused and no additional pain med needed. Good bowel sounds, will advance to clear liquid diet. Obtain TSH with reflex T-4 to check hyperthyroidism, on Tapazole Hyperglycemia, non-diabetic, will get an A1c, likely stress response. Discussed with Dr. Herrera, will transfer to surgical floor. 1500 ADDENDUM: TSH low, she is on Tapazole for Hyperthyroidism. Talked with Dr. Mccarty, will continue same dose and ask for a Richmond Rios consult either next week or after discharge. She had small stool, some blood, diet advanced to full liquids. 3/11 POD #3 I am little reluctant to discharge the patient this afternoon. Will continue to follow closely over the next 24 hours and if she does not have any further rectal bleeding will discharge the patient tomorrow. Overall pleased with the patient's progress. I believe the bleeding likely is the result of her prior anastomosis and will hopefully be a self-limiting process. 3/12 POD #4 Eating regular diet, BM's, although bloody yesterday, brown formed stool today. Plan on DC to home later today. Obtain a consult with Dr. Rios for hyperthyroidism and elevated Hgb A1c, patient is in agreement. Follow up with Chung in 10-14 days. Oncology appointment will be arranged. DC to home today Time spent with patient: 25 - 35 minutes Resuscitation Status: Full Code Discharge Plan - Med Rec/Dispo Referrals/Follow Up: Richmond Rios MD [Physician] - 08/09/17 1:30 pm (outpatient consult for hyperthyroidism and slightly elevated Hgb A1c, referring is Dr. Mccarty) Pb Herrera MD [Physician] - 05/18/17 10:15 am Nitin Instructions: Colectomy (DC) Prescriptions: New Hydrocodone/APAP 5/325 [Flora 5/325] 1 - 2 tab PO Q5H PRN #20 tab PRN Reason: Pain Continue Multivitamin [Multivitamins] 1 cap PO DAILY Lisinopril [Zestril] 20 mg PO DAILY aspirin 81 mg chewable tablet 81 mg PO DAILY Tylenol Arthritis 650 mg tablet,extended release 650 mg PO Q8H PRN PRN Reason: Pain vit A 7,160 unit-vit C 113 mg-vit E 100 bhad-odpj-absvzb-lutein tablet 2 tab PO BID guanfacine 1 mg tablet 1 mg PO HS omega 3-dha 60 mg-epa 90 mg-fish oil 500 mg capsule, delayed release 1 cap PO DAILY cap methimazole 10 mg tablet 10 mg PO DAILY - Disposition 01 Discharged Home, Self-Care - Dismissal Complete Discharge Instructions are:: Complete
== END 2017-05-07 15:55 | disposition home or self-care (01) | DRG 331 ==
LOC: NMC.PERIOP 11:04 → CCU 18:20 → SRG 05-04 13:49
PROVIDERS: ADMIT Surgery; ATTEND Surgery